=== PATIENT | female | born 1970 | race Caucasian/White ===

== ENCOUNTER 2021-10-26 17:56 | Emergency (ER) | payer SELFPAY | END 2021-10-26 22:09 | disposition home or self-care (01) | LOC: ERS 17:56 | DX: L03.115 Cellulitis of right lower limb (principal); F17.210 Nicotine dependence, cigarettes, uncomplicated ==

== ENCOUNTER 2021-10-30 16:07 | Emergency (ER) | payer SELFPAY ==
[2021-10-30] MEDS ORDERED: Lidocaine 1% PF 5 ML VIAL ONE (17:18)
[2021-10-30] MEDS ORDERED: cefTRIAXone\\ROCEPHIN 1 GM VIAL ONE (17:18)
== END 2021-10-30 17:49 | disposition home or self-care (01) ==
LOC: ERS 16:07
DX: L03.115 Cellulitis of right lower limb (principal); F17.210 Nicotine dependence, cigarettes, uncomplicated
CPT/HCPCS: 96372; 99283; J0696

== ENCOUNTER 2022-06-04 18:43 | Emergency (ER) | payer SELFPAY | END 2022-06-04 20:35 | disposition home or self-care (01) | LOC: ERS 18:43 | DX: M71.21 Synovial cyst of popliteal space [Baker], right knee (principal); F17.210 Nicotine dependence, cigarettes, uncomplicated ==